=== PATIENT | female | born 1945 | race Caucasian/White ===

== ENCOUNTER 2017-04-22 19:25 | Inpatient (IN) | payer MEDICARE ==
[2017-04-22 19:50] LABS: Bilirubin Negative (Negative); Blood, Urine Negative (Negative); Glucose, Urine (Dipstick) Negative (Negative); Ketone, Urine Negative (Negative); Nitrite Negative (Negative); Protein, Urine (Dipstick) Negative (Neg-Trace)
[2017-04-22 19:53] LABS: Bacteria/HPF None Seen HPF (None Seen); Hyaline Casts/LPF 0-3 HYALINE CAST LPF (0-3 Hyaline); RBC/HPF 0-3 HPF (0-3)
[2017-04-22] MEDS ORDERED: Ondansetron HCl/PF 4 MG/2 ML Vial ONE (19:59)
[2017-04-22] MEDS ORDERED: Lidocaine Viscous Sol 2% 15 ml UD Cup ONE (19:59)
[2017-04-22] MEDS ORDERED: Mag-Al 1200 mg/1200 mg/30 ML UDCUP ONE (19:59)
[2017-04-22 20:03] LABS: #Eosinphils 0.2 thou/uL (0.0-0.7); #Lymphocytes 1.5 thou/uL (1.20-3.40); #Monocytes 0.6 thou/uL (0.11-0.59); #Neutrophils 5.8 thou/uL (1.40-6.50); %Basophils 0.1 % (0.0-1.0); %Eosinophils 2.4 % (0.0-10.0); %Lymphocytes 18.7 % (21.0-51.0); %Monocytes 7.3 % (0.0-10.0); Hematocrit 44.9 % (36.0-47.0); Mean Platelet Volume 6.7 fL (7.4-10.4); Red Blood Cell (RBC) Count 4.99 mill/uL (4.20-5.40); White Blood Cell (WBC) Count 8.1 thou/uL (4.8-10.8)
[2017-04-22 20:26] LABS: ALT (SGPT) 19 U/L (8-55); AST (SGOT) 18 U/L (5-34); Alkaline Phosphatase 93 U/L (40-150); Anion Gap 17 mmol/L (10-20); BUN (Urea Nitrogen) 18 mg/dL (9.8-20.1); Bilirubin, Total 0.7 mg/dL (0.2-1.2); Calc. Creatinine Clearance 0 mL/min (70-130); Calcium 9.9 mg/dL (7.8-10.44); Carbon Dioxide 22 mmol/L (23-31); Chloride 103 mmol/L (98-107); Estimated GFR-MDRD 60; Globulin 3.2 g/dL (2.4-3.5); Lipase 30 U/L (8-78)
[2017-04-22 20:29] LABS: Troponin I Less than 0.010 ng/mL (< 0.028)
--- NOTE | 2017-04-22 20:43 | RAD ---
AP VIEW CHEST 04/22/17 HISTORY: Vomiting. AP view chest is obtained on 04/22/17. Comparison study is not available. AP view chest demonstrates mild cardiomegaly. The lungs are well aerated. No evidence of active intra thoracic disease seen. No evidence of effusions, pneumonia, or pneumothorax seen. IMPRESSION: Mild cardiomegaly. POS: [facility]
[2017-04-22] MEDS ORDERED: Lorazepam 2 MG/ML VIAL ONE (22:31)
[2017-04-22] MEDS ORDERED: Aspirin 300 MG Suppository ONE (22:32)
[2017-04-22] MEDS ORDERED: Nitroglycerin 2% Ointment 1 INCH/1 GM Packet ONE (22:32)
[2017-04-22] MEDS ORDERED: Enoxaparin Sodium 80 MG/0.8 ML SYRINGE ONE (23:21)
[2017-04-22 23:55] LABS: Troponin I Less than 0.010 ng/mL (< 0.028)
[2017-04-23] MEDS ORDERED: Ondansetron HCl/PF 4 MG/2 ML Vial IVP PRN (00:36)
[2017-04-23] MEDS ORDERED: Nitroglycerin 0.4 MG TAB (25 Tab Bottle) SL PRN (00:36)
[2017-04-23] MEDS ORDERED: Ondansetron ODT 4 MG TAB SL PRN (00:36)
[2017-04-23] MEDS ORDERED: Morphine 4 MG/ML VIAL SLOW IVP PRN (00:36)
[2017-04-23] MEDS: Dextrose 5 % And 0.9 % NaCl 1,000 ML IV SCH ×2 (00:55→10:45)
[2017-04-23] MEDS ORDERED: Sodium Chloride 0.9% 1,000 ML IV SCH ×2 (01:00→11:00)
[2017-04-23 01:28] LABS: Troponin I Less than 0.010 ng/mL (< 0.028)
[2017-04-23 01:38] VITALS: BMI 25.4
--- NOTE | 2017-04-23 05:40 | HP-2 ---
CODE STATUS: FULL. PRIMARY CARE PHYSICIAN: Dr. Armand Lora ATTENDING: Dr. Bakari Kathleen RESIDENT: Madiha Brizuela D.O. HISTORIAN: Patient. CHIEF COMPLAINT: Abdominal pain, nausea and vomiting. HISTORY OF PRESENT ILLNESS: The patient is a 70-year-old female with past medical history of hyperte nsion, depression and anxiety who presented with reflux-like epigastric abdominal pain, onset 5 hours ago that started while she was cooking. The pain was also associated with what she describes as tro uble swallowing and nausea and vomiting. The patient denies prior exertional chest pain or decreasin g exercise tolerance. She denies shortness of breath at the time of this pain as well as diaphoresis or radiation of pain. The patient had a cath done 10 years ago that was negative, otherwise, has no prior CAD or cardiac workup. The patient reports a strong family history of hypertension and hernandez ry artery disease. In the ED an EKG was done which showed ST depression in anterior leads, 2 hours l ater EKG was repeated which showed worsening ST depression and new T-wave inversion in the anterior l darlyn. At the time of exam, the patient continues to report epigastric pain despite nitro paste. In the ER was given rectal aspirin, lorazepam 0.5 mg, and nitro paste. PAST MEDICAL HISTORY: 1. Hypertension. 2. Anxiety. 3. Depression. PAST SURGICAL HISTORY: 1. Hysterectomy. 2. Intestinal resection. 3. Left knee replacement. ALLERGIES: The patient reports possible allergy to MORPHINE stating that in the past she was told th at she had an allergic reaction, although she reports it was just a bad side effect causing itching. MEDICATIONS: 1. Metoprolol succinate 50 mg daily. 2. Bupropion 300 mg p.o. daily. 3. Lisinopril/HCTZ 20mg/12.5 mg once daily. 4. Atorvastatin 40 mg p.o. daily. 5. Amlodipine 10 mg p.o. daily. 6. Sertraline 25 mg p.o. daily. 7. Xanax 0.5 mg p.o. p.r.n. FAMILY HISTORY: Hypertension in both mother and father's side, brother who is 3 years younger has strickland d a CABG with severe coronary artery disease, dad of an [place]. SOCIAL HISTORY: Denies tobacco, alcohol, or drug use. REVIEW OF SYSTEMS: GENERAL: Patient denies fever. Reports decreased appetite. EYES: Denies vision changes or eye pain. ENT: Denies nasal congestion or rhinorrhea. RESPIRATORY: Denies cough, congestion or shortness of breath or exercise intolerance. CARDIOVASCULAR: Denies chest pain, palpitations or edema. GI: Reports nausea, vomiting, and abdominal pain. Denies diarrhea or constipation. GENITOURINARY: Denies dysuria. SKIN: Denies rashes. MUSCULOSKELETAL: Denies pain. NEURO: Denies syncope or seizure. PSYCHIATRIC: Reports anxiety. PHYSICAL EXAMINATION: VITAL SIGNS: Blood pressure 164/72, pulse 63, respiratory rate 16, T-max 97.8, pulse ox 96% on room air, current weight 67.13 kilograms. GENERAL: The patient is alert and oriented x4, appears anxious, well-developed, appropriately intera ctive. The patient asked to stop throughout the time to spit up foamy white saliva. EYES: PERRLA, EOMI. ENT: Oropharynx with erythema, but no masses or abnormal anatomy. NECK: Supple, without lymphadenopathy. CARDIOVASCULAR: Regular rate and rhythm. No murmurs or gallops. Radial pulses 2+. RESPIRATORY: Normal effort, no retractions. Clear to auscultation bilaterally. SKIN: Warm and dry. ABDOMEN: Soft, mild tenderness in the epigastric area. Bowel sounds positive in all 4 quadrants. N o masses or distention. No rebound tenderness, no guarding. EXTREMITIES: No edema. MUSCULOSKELETAL: Structure within normal limits. Tone within normal limits. NEUROLOGIC: No focal deficits. PSYCH: Appears anxious. LABORATORY DATA: CBC; white blood cell count 8.1, hemoglobin 15.0, hematocrit 44.9, platelets 244. Chemistries: Sodium 138, potassium 3.6, chloride 103, CO2 22, BUN 18, creatinine 0.92, glucose 93, G FR 60, calcium 9.9, total protein 8.0, albumin 4.8, AST 18, ALT 19, alkaline phosphatase 93, total bi lirubin 0.7. CK-MB 1.5. Troponin's less than 0.010, lipase 30. UA; specific gravity 1.017, blood negative, protein negative, leukocyte esterase small, nitrites nega tive, ketones negative, glucose negative, RBC 0-3, white blood cells 4-6, bacteria none, squamous 4-6 . EKG: ST depression in anterior leads with T-wave inversion and prolonged QTC at 483. Chest x-ray; mild cardiomegaly. ASSESSMENT AND PLAN: 1. Atypical chest pain secondary to unstable angina. The patient with acute onset epigastric pain t hat did not improve with typical medications, is not a typical presentation. The patient with ST dep ression on first EKG, worsened on second EKG 2 hours later. Troponin's negative, but there is concer n for ischemia with ST changes. She was given therapeutic Lovenox in the ED. We will trend the trop onins, repeat EKG with next troponin draw, and consult Cardiology in the morning. In regard to her p resentation of epigastric pain, physical exam is unimpressive for likelihood of stomach being the cau se or source of this pain, although it has not been ruled out. 2. Impaired swallowing. This is new onset, possibly related to the cause of epigastric pain. If ca rdiac workup is negative and the patient continues to have pain, we will consider barium swallow. 3. Hypertension, elevated now likely due to pain and stress, has decreased within the amount of time that I have interviewed the patient. We will give home medications and monitor. 4. Anxiety and depression. We will continue home medications. We will hold sertraline with the pro longed QTC. 5. Prolonged QTC. Monitor. Consider switching home sertraline to citalopram and avoid QT prolongin g agents. DISPOSITION AND LENGTH OF HOSPITAL STAY: 1-2 days. Symptomatic medications will be provided. History of physical exam as well as management was discussed with Dr. Kathleen.
[2017-04-23] MEDS: ALPRAZolam 0.5 MG TAB PO SCH ×2 (06:00→15:04)
[2017-04-23] MEDS ORDERED: Amlodipine 10 MG TAB PO SCH (09:00)
[2017-04-23] MEDS ORDERED: Lisinopril/Hydrochlorothiazide 20 mg/12.5 mg Tablet PO SCH (09:00)
[2017-04-23] MEDS ORDERED: Bupropion 150 MG XL TAB PO SCH (09:00)
[2017-04-23] MEDS ORDERED: Enoxaparin Sodium 100 MG/ML SYRINGE SC SCH (09:00)
[2017-04-23] MEDS ORDERED: Atorvastatin Calcium 40 MG TAB PO SCH (09:00)
[2017-04-23] MEDS ORDERED: Enoxaparin Sodium 80 MG/0.8 ML SYRINGE SC SCH (09:00)
[2017-04-23] MEDS ORDERED: Communication Order-Pharmacy FS SCH (11:00)
--- NOTE | 2017-04-23 11:17 | CON ---
DATE OF CONSULTATION: 04/23/2017 REASON FOR CONSULTATION: Abnormal EKG and chest pressure. HISTORY OF PRESENT ILLNESS: Ms. Red is a very pleasant 71-year-old woman with no previous cardiac history, who recently presented with chest tightness. She also had associated nausea and vomiting. No diaphoresis or other associated symptoms present. The pain lasted for several hours. The patien t did have dynamic EKG changes suggesting ischemia. She is currently pain free. She was given nitro glycerin with improvement in symptoms. PAST MEDICAL HISTORY: Hypertension, anxiety disorder and depression. PAST SURGICAL HISTORY: Hysterectomy and knee surgery. ALLERGIES: MORPHINE. MEDICATIONS: Metoprolol, lisinopril, bupropion, atorvastatin, amlodipine, sertraline and Xanax. SOCIAL HISTORY: No current tobacco or alcohol use. FAMILY HISTORY: Positive for hypertension. REVIEW OF SYSTEMS: Ten-point review of systems is as above, otherwise negative. PHYSICAL EXAMINATION: GENERAL: Patient is a pleasant female who is in no acute distress. The patient appears her stated a ge. VITAL SIGNS: Blood pressure 147/74, pulse 57 and temperature 97.6. NEUROLOGIC: The patient is alert and oriented x3 with no focal neurologic deficits. HEENT: Sclerae without icterus. Mouth has moist mucous membranes with normal pallor. NECK: No JVD. Carotid upstroke brisk. No bruits bilaterally. LUNGS: Clear to auscultation with unlabored respirations. BACK: No scoliosis or kyphosis. CARDIAC: Regular rate and rhythm with normal S1 and S2. No S3 or S4 noted. No significant rubs, mu rmurs, thrills, or gallops noted throughout the precordium. PMI is not displaced. There is no alexa ternal heave. ABDOMEN: Soft, nontender, nondistended. No peritoneal signs present. No hepatosplenomegaly. No ab normal striae. EXTREMITIES: 2+ femoral and 2+ dorsalis pedis pulses. No cyanosis, clubbing, or edema. SKIN: No gross abnormalities. IMAGING DATA: EKG; normal sinus rhythm with ST-T wave changes suggesting ischemia. PERTINENT LABS: Hemoglobin 15 and creatinine 0.92. IMPRESSION: Unstable angina. RECOMMENDATIONS: I discussed the options including medical therapy, stress test versus angiography. Given the EKG changes and symptoms, would recommend angiography. I discussed coronary angiography i n full detail. The risks include, but are not limited to the following: , stroke, [place], need for emergency surgery, loss of limb, bleeding, and infection, as well as a reaction to the dye causing k idney failure and needing long-term dialysis. I also discussed the risks of PCI to include all of th e above including coronary dissection and perforation in addition to acute stent thrombosis and reste nosis. All questions about the procedure were answered. Given the above, the patient agreed to proc eed with coronary angiography and possible PCI. I also discussed drug-coated versus nondrug coated s tent placement. There are no contraindications to proceed if needed. Further recommendations pendin g the above.
[2017-04-23] MEDS ORDERED: Heparin 1000 UNIT/NS 500ML(OR) 1,000 ML ONE (12:34)
[2017-04-23] MEDS ORDERED: Iopamidol 370 76% 100 ML VIAL ONE (13:03)
[2017-04-23] MEDS ORDERED: Fentanyl 100 MCG/2 ML VIAL ONE (13:04)
[2017-04-23] MEDS ORDERED: Midazolam HCl 2 mg/2 ml Vial ONE (13:04)
--- NOTE | 2017-04-23 13:38 | HP ---
I have read the history and physical of Dr. Madiha Brizuela and discussed the case with her. I agree wit h her assessment and plan. Briefly, Ms. Red is a pleasant 71-year-old white female who had some atypical chest pain prior to coming to the emergency room. She was standing in the kitchen cooking when she noticed some epigastr ic pain associated with dysphagia and nausea. She denies any previous history of exertional chest di scomfort or exercise intolerance. She was not short of breath or diaphoretic at the time of this dis comfort. She states she had a normal heart catheterization approximately 10 years ago. She came to the ER and was given aspirin and nitroglycerin. Her EKG already showed some possible ischemic change s and she was admitted for further evaluation. I examined her later in the morning. PHYSICAL EXAMINATION: VITAL SIGNS: Her blood pressure is currently 150/68, her pulse rate is 65 and regular, respirations 16 and not labored. She is afebrile. Her pulse ox on room air is 96%. GENERAL: Ms. Red is pleasant, alert, somewhat anxious, but in no distress. HEENT: Extraocular movements are normal. No icterus. Throat clear. NECK: Supple. CARDIAC: The PMI is in the fifth intercostal space, midclavicular line. No gallop or murmur noted. LUNGS: Clear, without rales, rhonchi, or wheezes. ABDOMEN: Flat and soft with mild epigastric tenderness. No rebound or rigidity. NEUROLOGIC: No focal deficits. LABORATORY DATA: CBC: White count is 8100, hemoglobin was 15, hematocrit 44.9. Sodium is 138, pota ssium 3.6, chloride 103, bicarbonate 22, BUN 18, creatinine 0.92, glucose 93. Her troponins are nega tive. Her EKG shows what appears to be significant ischemic changes in the precordial leads V2 and V 3. ASSESSMENT: Unstable angina. PLAN: Consult Cardiology as she will likely go for cardiac catheterization.
[2017-04-23 16:44] VITALS: BP 126/75; TEMP 99.6
--- NOTE | 2017-04-24 12:21 | DIS-2 ---
DATE OF DISCHARGE: 04/23/2017 RESIDENT: Dr. Angelo Belcher ADMITTING ATTENDING: Dr. Johnathan Henderson DISCHARGE ATTENDING: Dr. Bakari Kathleen CONSULTS: Cardiology with Dr. Hernandez. PROCEDURES: The patient did undergo a cardiac catheterization with Dr. Hernandez. Findings were mild CAD. She had 20% stenosis in her mid LAD. Dr. Hernandez has recommended medical management with follow up with her PCP and health aid going forward. PRIMARY DIAGNOSES: 1. Atypical chest pain secondary to unstable angina. 2. Impaired swallowing. 3. Hypertension. 4. Anxiety and depression. 5. Prolonged QTC. DISCHARGE MEDICATIONS: 1. Bupropion 300 mg. 2. Atorvastatin 40 mg. 3. Metoprolol succinate 50 mg. 4. Lisinopril/hydrochlorothiazide 20/12.5 mg. 5. Amlodipine 10 mg. 6. Alprazolam 0.5 mg. DISCONTINUED MEDICATIONS: Sertraline 25 mg. HISTORY OF PRESENT ILLNESS AND HOSPITAL COURSE: This is a 70-year-old female with past medical history of hypertension, depression, anxiety who presents with reflux-like epigastric abdominal pain, onset 5 hours ago that started while she was cooking. The pain was also associated with what was described as trouble swallowing and nausea and vomiting. The patient denies prior exertional chest pain or decreasing exercise tolerance. She denies shortness of breath at the time of this pain as well as diaphoresis or radiation of pain. The patient had a catheterization done 10 years ago that was negative. Otherwise, has had no prior CAD or cardiac workup. The patient reports a strong family history of hypertension and coronary artery disease. In the ED, an EKG was done which showed ST depression in anterior leads, 2 hours later the EKG was repeated which showed worsening ST depression and new T-wave inversion in the anterior leads. At the same time of the exam, the patient continues to report epigastric pain despite nitro paste. In the ER, she was given a rectal aspirin, lorazepam and nitro paste. During this hospitalization, the chest pain resolved with the nitro paste and the patient no longer had any of the dysphagia-like symptoms. The patient believes that the dysphagia-like symptoms and the chest pain resolved around the same time after the application of the nitro paste. Because of the EKG findings and changes, Dr. Hernandez with Cardiology was consulted and we appreciate his recommendations. Dr. Hernandez saw and evaluated the patient and he recommended to proceed with a cardiac catheterization at that time. The patient went back for the cardiac catheterization and was found to have a 20% stenosis of the left anterior descending artery of the myocardium. The patient had no complications from this procedure and was pain free during this entire time. The patient then was taken back up to the room to be observed to make sure no other complications would come from this procedure. She was also placed on tele monitoring and had no further events from a cardiac standpoint. The patient had some notable lab values of troponins less than 0.01 x3. A cholesterol level of 145 and a prolonged QT interval found on EKG. It was at that time that we decided to hold her sertraline medication until she was able to follow up with her primary care physician, Dr. Lora. The patient otherwise had no complications during this hospitalization and was discharged in an appropriate condition. DISPOSITION: Stable. DISCHARGE INSTRUCTIONS: 1. She will be discharged home into her own care. 2. Diet will be a heart healthy diet. 3. Activity: Activity will be as tolerated without any restrictions. 4. Followup: Follow up will be with her primary care physician, Dr. Lora in 3 days to discuss the prolonged QT interval as well as the sertraline medications. She is already also on optimal medical therapy for CAD and so she will just need to continue that under Dr. Lora's supervision. Otherwise, a very sweet lady and we wish her the best of luck and hope she has no further complications from this condition. RANJANA
== END 2017-04-23 18:21 | disposition home or self-care (01) | DRG 287 ==
LOC: ERS 19:25 → 2SE 22:30 → OBSVTOIN 22:30
PROVIDERS: ADMIT Family Medicine; ATTEND Family Medicine
PROC: 4A023N7 Measurement of Cardiac Sampling and Pressure, Left Heart, Percutaneous Approach (ICD-10-PCS; principal; 2017-04-23)
PROC: B2111ZZ Fluoroscopy of Multiple Coronary Arteries using Low Osmolar Contrast (ICD-10-PCS; 2017-04-23)
PROC: B2151ZZ Fluoroscopy of Left Heart using Low Osmolar Contrast (ICD-10-PCS; 2017-04-23)
DX: I25.110 Atherosclerotic heart disease of native coronary artery with unstable angina pectoris (principal); R13.10 Dysphagia, unspecified; I10 Essential (primary) hypertension; F32.9 Major depressive disorder, single episode, unspecified; F41.9 Anxiety disorder, unspecified; Z96.652 Presence of left artificial knee joint; Z82.49 Family history of ischemic heart disease and other diseases of the circulatory system
CPT/HCPCS: 36415; 71010; 80053; 80061; 81003; 81015; 82553; 83690; 84484; 85025; 93005; 93010; 93454; 96372; 96374; 96375; 99152; A4216; C1760; C1769; J1644; J1650; J2060; J2250; J2405; J3010

== ENCOUNTER 2020-04-26 16:48 | Inpatient (IN) | payer MEDICARE ==
--- NOTE | 2020-04-26 17:32 | RAD ---
Right knee 4 views: 04/26/2020 COMPARISON: None HISTORY: Injury, trauma, pain, swelling FINDINGS: Moderate medial and mild lateral compartment narrowing. Osteophyte formation noted involvin g the medial and lateral femoral condyles as well as the medial and lateral tibial plateaus. There is a prominent knee joint effusion. There is an acute horizontal fracture through the midportio n of the patella with slight distraction. IMPRESSION: Acute patellar fracture with associated knee joint effusion.
[2020-04-26 18:20] LABS: #Eosinphils 0.1 thou/uL (0.0-0.7); #Lymphocytes 1.2 thou/uL (1.20-3.40); #Monocytes 0.4 thou/uL (0.11-0.59); #Neutrophils 4.5 thou/uL (1.40-6.50); %Basophils 0.1 % (0.0-1.0); %Eosinophils 2.4 % (0.0-10.0); %Lymphocytes 18.6 % (21.0-51.0); %Monocytes 6.8 % (0.0-10.0); %Neutrophils 72.1 % (42.0-75.0); Hemoglobin 14.3 g/dL (12.0-16.0); Mean Corpuscular HGB CONC 34.3 g/dL (32.0-36.0); Mean Corpuscular Hemoglobin 29.3 pg (27.0-31.0); Mean Corpuscular Volume 85.6 fL (78.0-98.0); Mean Platelet Volume 6.8 fL (7.4-10.4); Platelet Count 201 thou/uL (130-400); RBC Distribution Width 12.1 % (11.5-14.5); Red Blood Cell (RBC) Count 4.87 mill/uL (4.20-5.40); White Blood Cell (WBC) Count 6.2 thou/uL (4.8-10.8)
--- NOTE | 2020-04-26 18:32 | RAD ---
Portable frontal chest radiograph: 04/26/2020 COMPARISON: 04/22/2017 HISTORY: Preoperative patient FINDINGS: Stable mild increased linear interstitial density with pulmonary hyperinflation. Stable vas cular calcification of the aortic arch. No pneumothorax, pleural fluid, focal consolidation, or alveolar edema. IMPRESSION: Stable chest radiograph
[2020-04-26 18:40] LABS: ALT (SGPT) 16 U/L (8-55); AST (SGOT) 16 U/L (5-34); Albumin 4.8 g/dL (3.4-4.8); Alkaline Phosphatase 98 U/L (40-110); Anion Gap 15 mmol/L (10-20); BUN (Urea Nitrogen) 18 mg/dL (9.8-20.1); Bilirubin, Total 0.6 mg/dL (0.2-1.2); Calc. Creatinine Clearance 0 mL/min (70-130); Calcium 9.2 mg/dL (7.8-10.44); Carbon Dioxide 26 mmol/L (23-31); Chloride 105 mmol/L (98-107); Globulin 2.6 g/dL (2.4-3.5); Glucose 97 mg/dL (83-110); Potassium 3.9 mmol/L (3.5-5.1); Protein, Total 7.4 g/dL (6.0-8.3); Sodium 142 mmol/L (136-145)
[2020-04-26] MEDS ORDERED: Ibuprofen 200 MG TAB ONE ×2 (19:26→19:31)
[2020-04-26] MEDS ORDERED: HYDROcodone/Acetaminophen 10/325 mg Tablet ONE (19:31)
[2020-04-26] MEDS ORDERED: Morphine 2 MG/ML VIAL SLOW IVP PRN (19:39)
[2020-04-26] MEDS ORDERED: Ondansetron PF 4 MG/2 ML Vial IVP PRN (19:39)
[2020-04-26] MEDS ORDERED: Dextrose 5% in Water 1,000 ML IV PRN (19:39)
[2020-04-26] MEDS ORDERED: Dextrose 50% Abboject 50 ML SYRINGE SLOW IVP PRN (19:39)
[2020-04-26] MEDS ORDERED: hydrALAZINE 20 MG/ML VIAL SLOW IVP PRN (19:39)
[2020-04-26] MEDS ORDERED: Ibuprofen 200 MG TAB PO PRN (19:59)
[2020-04-26] MEDS ORDERED: Cyclobenzaprine 10 MG TAB PO PRN (19:59)
[2020-04-26] MEDS ORDERED: Sodium Chloride 0.9% 1,000 ML IV SCH (20:00)
[2020-04-26 21:12] LABS: Magnesium 2.3 mg/dL (1.6-2.6); Phosphorus 3.9 mg/dL (2.3-4.7)
[2020-04-26] MEDS ORDERED: Famotidine 20 MG TAB ONE (22:16)
[2020-04-26] MEDS ORDERED: traMADol HCl 50 MG TAB ONE (22:25)
[2020-04-26] MEDS: Famotidine 20 MG TAB PO SCH (22:31)
[2020-04-26] MEDS: traMADol HCl 50 MG TAB PO SCH (22:32)
[2020-04-26] MEDS: Senokot S 8.6-50 MG TAB PO SCH (23:09)
[2020-04-27] MEDS: Acetaminophen 500 MG TAB PO SCH ×5 (00:45→23:33)
[2020-04-27] MEDS ORDERED: tiZANidine HCl 4 MG TAB PO SCH (00:45)
[2020-04-27] MEDS ORDERED: ALPRAZolam 0.5 MG TAB PO SCH (00:45)
--- NOTE | 2020-04-27 00:51 | HP ---
REQUESTING PHYSICIAN: Dr. Sylvester. PRIMARY CARE PHYSICIAN: Dr. Lora. CONSULTS: Orthopedic Surgery, Dr. Navarrete. CHIEF COMPLAINT: Mechanical fall, right knee pain. HISTORY OF PRESENT ILLNESS: This is a 74-year-old female who presented to the emergency room after she had a mechanical fall. The patient states that she was ambulating when her right knee gave out causing her to fall forward onto her knees. The patient had immediate right knee pain. The patient did not hit her head or lose consciousness. The patient reports having past knee trouble for the last 3 to 4 years, needing a knee replacement. The patient denied any chest pain, shortness of breath, or dizziness prior to falling. The patient denies any recent cough, cold, fever, chills, or congestion. The patient also reports an abrasion to her left knee, but no pain or deformity. The patient was evaluated in the emergency room and found to have a left patellar fracture with an effusion. Orthopedic Surgery was consulted and Trauma Services was asked to admit the patient. REVIEW OF SYSTEMS: A 10-point review of systems is negative unless otherwise indicated in the above HPI. ALLERGIES: MORPHINE CAUSES ITCHING. PAST MEDICAL HISTORY: Hypertension, hyperlipidemia, and chronic back pain. PAST SURGICAL HISTORY: Hysterectomy, left knee replacement, bowel resection due to diverticulosis. MEDICATIONS: 1. Toprol-XL 50 mg p.o. daily. 2. Tizanidine hydrochloride 4 mg p.o. at bedtime. 3. Lisinopril/hydrochlorothiazide 20/12.5 mg one tablet p.o. daily. 4. Bupropion HCL extended release 300 mg p.o. daily. 5. Atorvastatin 40 mg p.o. daily. 6. Norvasc 10 mg p.o. daily. 7. Alprazolam 0.5 mg p.o. q.8 hours p.r.n. SOCIAL HISTORY: The patient lives at home with her spouse. Denies alcohol use. Denies history of smoking. Denies drug use. OBJECTIVE: VITAL SIGNS: Blood pressure 139/71, pulse 78, respirations 17, temperature 100.2, and SpO2 of 97% on room air. GENERAL: Well-appearing elderly female, awake, alert, in no distress. HEENT: Head is atraumatic and normocephalic. Pupils equal bilateral. NECK: No cervical spine tenderness. Normal range of motion. Trachea midline. RESPIRATORY: Good inspiratory and expiratory effort. No wheezing, rales, or rhonchi. Bilateral breath sounds clear. CARDIAC: Regular rate and regular rhythm. No murmurs. ABDOMEN: Soft, nontender, and nondistended. PELVIS: Stable. EXTREMITIES: Moves all extremities. Distal pulses 2+ in all extremities. No pedal edema. Right lower extremity in a knee immobilizer. Superficial abrasion to the left knee. NEUROLOGIC: No focal deficits. GCS 15. LABORATORY DATA: WBC 6.2, RBC 4.87, hemoglobin 14.3, hematocrit 41.7, platelets 201. Sodium 142, potassium 3.9, chloride 105, BUN 18, creatinine 0.94, estimated GFR 58, glucose 97, phosphorus 3.9, magnesium 2.3. AST 16, ALT 16. Troponin I less than 0.010. DIAGNOSTIC DATA: Knee x-ray, impression, right patellar fracture with associated knee joint effusion. Chest x-ray, impression, stable chest x-ray, no pneumothorax, no acute cardiothoracic abnormalities. ASSESSMENT: 1. Status post mechanical fall. 2. Right patellar fracture with knee joint effusion. 3. History of hypertension and insomnia. PLAN: Admit the patient to the surgical floor. N.p.o. after midnight with maintenance IV fluids, normal saline at 100 mL an hour x1 bag. The patient may have a regular diet tonight. Pain control. Supportive care. We will place a rehab screen in case the patient needs additional rehab, but most likely the patient will be discharged home postop as she will be able to bear weight according to Orthopedic Surgery. The patient is planned to go to the OR for repair with Dr. Navarrete around 1230 hours tomorrow. We will have PT/OT work with the patient postop. The plan was discussed with the patient and family who agree. The plan will be discussed with the attending after this dictation. Job ID: [id number]
[2020-04-27] MEDS ORDERED: ALPRAZolam 0.25 MG TAB ONE (01:08)
[2020-04-27] MEDS ORDERED: traMADol HCl 50 MG TAB ONE (03:05)
[2020-04-27] MEDS ORDERED: Acetaminophen 500 MG TAB ONE (03:05)
[2020-04-27] MEDS: traMADol HCl 50 MG TAB PO PRN (03:10)
[2020-04-27 03:51] VITALS: BMI 24.9
[2020-04-27] MEDS: traMADol HCl 50 MG TAB PO SCH ×4 (05:18→23:33)
[2020-04-27 05:22] LABS: #Eosinphils 0.1 thou/uL (0.0-0.7); #Lymphocytes 1.5 thou/uL (1.20-3.40); #Monocytes 0.5 thou/uL (0.11-0.59); #Neutrophils 2.8 thou/uL (1.40-6.50); %Basophils 0.5 % (0.0-1.0); %Eosinophils 2.7 % (0.0-10.0); %Lymphocytes 30.8 % (21.0-51.0); %Monocytes 10.1 % (0.0-10.0); %Neutrophils 55.8 % (42.0-75.0); Hemoglobin 11.6 g/dL (12.0-16.0); Mean Corpuscular HGB CONC 32.3 g/dL (32.0-36.0); Mean Corpuscular Hemoglobin 28.1 pg (27.0-31.0); Mean Corpuscular Volume 86.9 fL (78.0-98.0); Platelet Count 170 thou/uL (130-400); RBC Distribution Width 12.1 % (11.5-14.5); Red Blood Cell (RBC) Count 4.15 mill/uL (4.20-5.40); White Blood Cell (WBC) Count 4.9 thou/uL (4.8-10.8)
[2020-04-27 05:43] LABS: Anion Gap 12 mmol/L (10-20); BUN (Urea Nitrogen) 15 mg/dL (9.8-20.1); Calc. Creatinine Clearance 65 mL/min (70-130); Carbon Dioxide 25 mmol/L (23-31); Chloride 107 mmol/L (98-107); Potassium 3.3 mmol/L (3.5-5.1); Sodium 141 mmol/L (136-145)
[2020-04-27 05:44] LABS: Calcium 8.3 mg/dL (7.8-10.44); Glucose 79 mg/dL (83-110); Magnesium 2.3 mg/dL (1.6-2.6); Phosphorus 3.8 mg/dL (2.3-4.7)
[2020-04-27 05:58] LABS: SARS-CoV-2 MS2 Positive; SARS-CoV-2 N Gene Negative; SARS-CoV-2 S Gene Negative; SARS-CoV-2 by NAA Not Detected (NotDetected); SARS-CoV-2 orf1ab Negative
[2020-04-27] MEDS: Senokot S 8.6-50 MG TAB PO SCH ×2 (08:20→21:16)
[2020-04-27] MEDS: Polyethylene Glycol 3350 17 GM Packet PO SCH (08:20)
[2020-04-27] MEDS: Famotidine 20 MG TAB PO SCH ×2 (08:42→21:16)
--- NOTE | 2020-04-27 08:45 | CON ---
DATE OF CONSULTATION: 04/26/2020 REQUESTING PHYSICIAN: Mark Andrews DO CONSULTING PHYSICIAN: Henry Navarrete MD REASON FOR CONSULTATION: Right transverse patellar fracture. BRIEF CLINICAL HISTORY: Hanna is a 74-year-old female admitted by the Trauma Service for mechanical fall with resulting right knee pain secondary to a transverse patellar fracture. She describes the knee as "giving out" and she has been advised by Dr. Llanes in the past that she would ultimately require a total knee arthroplasty for her osteoarthritis. This has been an ongoing problem. She denies any loss of consciousness. She denies any fever, chills, nausea, vomiting, or any other constitutional symptoms. She remembers the events before, during, and after the episode. Plain radiographs obtained in the emergency room demonstrates transverse mid pole patellar fracture on the right knee. Also, large hematoma is noted in the suprapatellar pouch. PAST MEDICAL HISTORY: Hypertension, hyperlipidemia, chronic low back pain for which she receives rhizotomy on a regular basis by Dr. Orlando, who follows her from a pain standpoint. MEDICATIONS: 1. Toprol. 2. Tizanidine. 3. Lisinopril. 4. Bupropion. 5. Atorvastatin. 6. Norvasc. 7. Alprazolam. ALLERGIES: NO KNOWN DRUG ALLERGIES. DENIES ANY CONTACT ALLERGIES. SOCIAL HISTORY: She and her spouse live at home. She denies any ethanol, tobacco, or illicit drug abuse. PHYSICAL EXAMINATION: GENERAL: This is a well-nourished, well-developed female, appearing her stated age, no apparent distress, discomfort. She is polite, pleasant and conversive. HEENT: Pupils equally round and reactive to light. Oropharynx benign. CHEST: Clear to auscultation. HEART: Regular rhythm. ABDOMEN: Soft, benign. EXTREMITIES: No clubbing, cyanosis, or edema. She does have a long-leg immobilizer in place on the right knee. +1 to 2 effusion is noted over the right knee. Tenderness elicits with palpation at the patella. Range of motion is not assessed due to known underlying fracture. She is neurovascularly intact without any malrotation or shortening of the right lower extremity. No active bleeding or open fracture identified. IMPRESSION: 1. Right knee transverse patellar fracture, closed secondary to mechanical fall. 2. Hypertension. 3. Hyperlipidemia. PLAN: 1. The risks, benefits, options, alternatives, and rationale for proceeding with open reduction and internal fixation of the right patella has been explained in great detail to the patient, she is ready to proceed. All questions were answered. No guarantee of outcome has been stated or implied. 2. N.p.o. after midnight. 3. Please see orders. Job ID: [id number]
[2020-04-27] MEDS ORDERED: Potassium Chloride 40 MEQ in Sodium Chloride 0.9% 250 ML 250 ML IVPB SCH (09:00)
[2020-04-27] MEDS ORDERED: Ondansetron PF 4 MG/2 ML Vial ONE (11:11)
[2020-04-27] MEDS ORDERED: Ketorolac Tromethamine 30 MG/ML VIAL ONE (11:11)
[2020-04-27] MEDS ORDERED: Lidocaine 1% PF 5 ML VIAL ONE (11:11)
[2020-04-27] MEDS ORDERED: Dexamethasone 20 MG/5 ML VIAL ONE (11:11)
[2020-04-27] MEDS ORDERED: Glycopyrrolate 0.2 MG/ML 5 ML SYRINGE ONE (11:11)
[2020-04-27] MEDS ORDERED: Metoclopramide HCl 10 MG/2 ML VIAL ONE (11:11)
[2020-04-27] MEDS ORDERED: PROPOFOL 200 MG/20 ML VIAL ONE (11:11)
[2020-04-27] MEDS ORDERED: Bupivacaine HCl 0.5%/Epinephrine 1:200,000/PF 30 ml Vial ONE (11:11)
[2020-04-27 11:28] LABS: Bacteria/HPF None Seen HPF (None Seen); Bilirubin Negative (Negative); Blood, Urine Negative (Negative); Clarity Clear (Clear); Glucose, Urine (Dipstick) Normal (Negative); Ketone, Urine Negative (Negative); Leukocyte Negative Leu/uL (Negative); Nitrite Negative (Negative); Protein, Urine (Dipstick) Negative (Neg-Trace); RBC/HPF 0-3 HPF (0-3); Specific Gravity, Urine 1.009 (1.002-1.036); Squamous Epithelial None Seen HPF (0-3); Urobilinogen Normal mg/dL (Less than 2); WBC/HPF 0-3 HPF (0-3)
[2020-04-27] MEDS ORDERED: Fentanyl 100 MCG/2 ML VIAL ONE ×2 (12:56→13:08)
[2020-04-27] MEDS ORDERED: Phenylephrine 10 MG/ML VIAL ONE (12:56)
[2020-04-27] MEDS ORDERED: Midazolam HCl 2 mg/2 ml Vial ONE (13:08)
[2020-04-27] MEDS ORDERED: Ondansetron HCl/PF 4 MG/2 ML Vial IVP PRN (14:55)
[2020-04-27] MEDS ORDERED: Promethazine HCl 25 MG/ML VIAL SLOW IVP PRN (14:55)
[2020-04-27] MEDS ORDERED: Promethazine HCl 25 MG/ML VIAL IM PRN (14:55)
[2020-04-27] MEDS ORDERED: Chloraseptic Spray 180 ml Bottle PO PRN (18:46)
[2020-04-27] MEDS ORDERED: Cepastat Lozenges 1 LOZ PO PRN (18:46)
--- NOTE | 2020-04-27 19:00 | RAD ---
2 intraoperative images of the right knee: 04/27/2020 COMPARISON: 04/26/2020 HISTORY: Patellar fracture status post ORIF FINDINGS: The previously noted patellar fracture has been treated with 2 vertically oriented screws w ith associated cerclage wire. There is anatomic alignment at the fracture site. IMPRESSION: ORIF right patella.
--- NOTE | 2020-04-27 19:46 | OP ---
DATE OF PROCEDURE: 04/27/2020 PREOPERATIVE DIAGNOSIS: Transverse patella fracture, right. POSTOPERATIVE DIAGNOSIS: Transverse patella fracture, right. SURGICAL PROCEDURE: Open reduction and internal fixation of right patella. ANESTHESIA: General and block. ARC AIR OPERATOR: Jason. TOURNIQUET TIME: Approximately 45 minutes at 300 mmHg. IMPLANTS: Synthes 4.0 mm cannulated screws x2. COMPLICATIONS: None. DRAINS: None. SPECIMEN: None. OUTCOME: Satisfactory. INDICATIONS: The patient is a pleasant 74-year-old lady, status post fall sustaining a transverse fracture of the right patella with diastasis. After discussion with the patient including risks and benefits, we decided to proceed with open reduction and internal fixation. Informed consent has been obtained, I believe all questions have been answered. DESCRIPTION OF PROCEDURE: The patient was brought to the operating room and a time-out performed followed by induction of general anesthesia. Next, a sterile prep and drape were performed of the right lower extremity. Next, the limb was exsanguinated with Esmarch bandage, tourniquet inflated to 300 mmHg. Next, a midline anterior knee incision was made after skin was sharply incised. Dissection was carried down bluntly to the underlying quadriceps mechanism. The peritenon overlying the patellar tendon and patella was incised in line with skin incision and reflected medially and laterally by my drug safety assistant. Next, the fracture was reduced and held in place with a bone tenaculum with reduction checked under AP and lateral C-arm imaging. While my drug safety assistant continued to hold the fracture reduced, I passed two threaded guidewires from superior pole to the inferior pole of the patella under C-arm guidance. Once appropriately positioned, measurement was taken off these pins and then drilling was performed of the superior pole. Next, partially threaded 4.0 mm cancellous screws were passed over each guidewire, respectively, getting good compression across the fracture line. This was then followed by passage of an 18-gauge wire down the shaft of one of the screws exiting inferiorly. This was then brought back up superiorly and passed down the 2nd screw to achieve a [id number] type configuration. Next, dual twisting was performed to get excellent compression and a tension band construct of the patella. Final AP and lateral C-arm images were then obtained that showed anatomic alignment of the patella and appropriate positioning of the hardware. The tension band wire was then bent firmly against the patella to try and avoid any prominence and then the wound thoroughly irrigated. There was found to be no significant tearing of the retinaculum. The peritenon was reapproximated with 0 Vicryl followed by 2-0 Vicryl subcutaneously and lili for the skin. Xeroform gauze and Rajendra wrap dressing were applied to the knee and the knee was placed in the knee immobilizer and then tourniquet was let down and the patient transferred to recovery room in stable condition. There were no complications. The patient tolerated the procedure well. Job ID: [id number] MTDD
--- NOTE | 2020-04-27 20:18 | PRG ---
DATE OF SERVICE: 04/27/2020 SUBJECTIVE: The patient was seen this morning during rounds. She was sitting up in bed, was getting ready to go to the OR. She has been n.p.o. The pain is controlled. Earlier today, she was not able to void and so a Jean-Baptiste catheter was placed. OBJECTIVE: VITAL SIGNS: Temperature 98.0, pulse 52, respirations 20, oxygen saturation 97% on room air, blood pressure 151/71. GENERAL: Well-appearing elderly female, sitting up in bed with no signs of acute distress. PULMONARY: Equal chest rise and fall. Clear breath sounds bilaterally. No signs of acute respiratory distress. CARDIAC: Regular rate and rhythm. GASTROINTESTINAL: Abdomen is soft, nontender, nondistended. EXTREMITIES: 2+ pulses all extremities. Gross motor and sensation intact. No significant swelling noted. NEUROLOGIC: GCS is 15. LABORATORY FINDINGS: White count 4.9, hemoglobin 11.6, hematocrit 36.0, platelets 170. Sodium 141, potassium 3.3, chloride 107, bicarb 25, BUN 15, creatinine 0.74, glucose 79, phosphorus 3.8, magnesium 2.3. UA is negative. DIAGNOSTIC FINDINGS: There are no new diagnostic findings to report. ASSESSMENT: 1. Status post mechanical fall from standing. 2. Right patellar fracture with joint effusion. 3. History of hypertension. 4. Acute hypokalemia. 5. Urinary retention. PLAN: The patient is to go to the OR today. Continue Jean-Baptiste until postop. Replace potassium via IV this morning. The patient is to work with Physical Therapy postoperatively. Case Management is going to start on placement with a half-way facility. This patient was discussed with Dr. Andrews before this dictation. Job ID: [id number]
[2020-04-27] MEDS: CEFAZOLIN 2 GM in Premix Bag 1 BAG IVPB SCH (21:15)
[2020-04-27] MEDS: Cyclobenzaprine 10 MG TAB PO PRN (21:37)
[2020-04-28] MEDS: traMADol HCl 50 MG TAB PO PRN ×2 (03:40→16:17)
[2020-04-28] MEDS: traMADol HCl 50 MG TAB PO SCH ×4 (05:12→23:54)
[2020-04-28] MEDS: Acetaminophen 500 MG TAB PO SCH ×4 (05:12→23:54)
[2020-04-28] MEDS: CEFAZOLIN 2 GM in Premix Bag 1 BAG IVPB SCH ×2 (05:13→14:35)
[2020-04-28 05:45] LABS: #Monocytes 0.8 thou/uL (0.11-0.59); #Neutrophils 6.1 thou/uL (1.40-6.50); %Basophils 0.2 % (0.0-1.0); %Eosinophils 0.2 % (0.0-10.0); %Lymphocytes 13.2 % (21.0-51.0); %Monocytes 9.6 % (0.0-10.0); %Neutrophils 76.9 % (42.0-75.0); Hemoglobin 12.6 g/dL (12.0-16.0); Mean Corpuscular HGB CONC 33.6 g/dL (32.0-36.0); Mean Corpuscular Volume 86.2 fL (78.0-98.0); Mean Platelet Volume 6.8 fL (7.4-10.4); Platelet Count 187 thou/uL (130-400); Red Blood Cell (RBC) Count 4.36 mill/uL (4.20-5.40); White Blood Cell (WBC) Count 7.9 thou/uL (4.8-10.8)
[2020-04-28 06:10] LABS: Anion Gap 16 mmol/L (10-20); BUN (Urea Nitrogen) 9 mg/dL (9.8-20.1); Calc. Creatinine Clearance 63 mL/min (70-130); Carbon Dioxide 23 mmol/L (23-31); Chloride 104 mmol/L (98-107); Glucose 91 mg/dL (83-110); Phosphorus 3.4 mg/dL (2.3-4.7); Potassium 3.5 mmol/L (3.5-5.1); Sodium 139 mmol/L (136-145)
[2020-04-28] MEDS ORDERED: PHOS-NAK 1 PKT PACK PO SCH (08:00)
[2020-04-28] MEDS ORDERED: Potassium Chloride 20 MEQ TAB PO SCH (08:00)
[2020-04-28] MEDS ORDERED: BUPROPION HCL 300 MG PO SCH (09:00)
[2020-04-28] MEDS: Amlodipine 10 MG TAB PO SCH (09:15)
[2020-04-28] MEDS: Bupropion 150 MG XL TAB PO SCH (09:15)
[2020-04-28] MEDS: Aspirin 81 mg Enteric Coated Tablet PO SCH ×2 (09:15→20:00)
[2020-04-28] MEDS: Lisinopril/Hydrochlorothiazide 20 mg/12.5 mg Tablet PO SCH (09:15)
[2020-04-28] MEDS: Polyethylene Glycol 3350 17 GM Packet PO SCH (09:15)
[2020-04-28] MEDS: Atorvastatin Calcium 40 MG TAB PO SCH (09:18)
[2020-04-28] MEDS: Senokot S 8.6-50 MG TAB PO SCH ×2 (09:20→20:01)
--- NOTE | 2020-04-28 12:41 | PRG ---
DATE OF SERVICE: 04/28/2020 SUBJECTIVE: The patient was seen this morning during rounds. She was sitting up in bed with no signs of acute distress. She reported her pain is well controlled. Earlier in the morning, she was feeling anxious and received her home Xanax dose. She reports feeling better now. She has worked with physical therapy. She is not particularly interested in going to a rehab or skilled facility and will refer to go home with physical therapy. OBJECTIVE: VITAL SIGNS: Temperature 98.5, pulse 58, respirations 18, oxygen saturation 93% on room air, blood pressure 168/80. GENERAL: Well-appearing elderly female, sitting up in bed with no signs of acute distress. PULMONARY: Equal chest rise and fall. Clear breath sounds bilaterally. No signs of acute respiratory distress. CARDIAC: Regular rate and rhythm. GI: Abdomen is soft, nontender, nondistended. EXTREMITIES: 2+ pulses all extremities. Gross motor and sensation are intact. Knee immobilizer to right lower extremity. Postop dressing is clean, dry, and intact. NEUROLOGIC: GCS is 15. LABORATORY FINDINGS: White count 7.4, hemoglobin 12.6, hematocrit 37.6, platelets 187. Sodium 139, potassium 3.5, chloride 105, bicarb 23, BUN 9, creatinine 0.77, phosphorus 3.4, magnesium 2.0. DIAGNOSTIC FINDINGS: There are no new diagnostic findings to discuss. ASSESSMENT: 1. Status post mechanical fall from standing. 2. Right patellar fracture with joint effusion. 3. History of hypertension and anxiety. PLAN: Continue current diet and pain regimen. Continue physical and occupational therapy. Restart patient's home medications. Replace potassium and phosphorus today. Physical Therapy has recommended rehab for the patient. She is pretty adamant about going home with physical therapy. Trauma team to discuss with her our concerns about going home and possibly falling and injuring herself again. If she again is adamant about going home, we will arrange home physical therapy for her and likely discharge her tomorrow. This patient was seen and evaluated by myself and Dr. Andrews this morning during rounds. Job ID: [id number]
[2020-04-28] MEDS: Cyclobenzaprine 10 MG TAB PO PRN (12:50)
[2020-04-28] MEDS: ALPRAZolam 0.5 MG TAB PO PRN ×2 (12:50→21:47)
[2020-04-28] MEDS ORDERED: tiZANidine HCl 4 MG TAB PO SCH (21:00)
[2020-04-29] MEDS: traMADol HCl 50 MG TAB PO PRN ×2 (01:17→10:04)
[2020-04-29 05:32] LABS: #Eosinphils 0.2 thou/uL (0.0-0.7); #Lymphocytes 1.6 thou/uL (1.20-3.40); #Monocytes 0.7 thou/uL (0.11-0.59); #Neutrophils 4.9 thou/uL (1.40-6.50); %Basophils 0.4 % (0.0-1.0); %Eosinophils 2.2 % (0.0-10.0); %Lymphocytes 21.1 % (21.0-51.0); %Monocytes 10.1 % (0.0-10.0); %Neutrophils 66.3 % (42.0-75.0); Hemoglobin 12.9 g/dL (12.0-16.0); Mean Corpuscular HGB CONC 34.3 g/dL (32.0-36.0); Mean Corpuscular Hemoglobin 30.3 pg (27.0-31.0); Mean Corpuscular Volume 88.2 fL (78.0-98.0); Mean Platelet Volume 6.9 fL (7.4-10.4); Platelet Count 171 thou/uL (130-400); RBC Distribution Width 12.2 % (11.5-14.5); Red Blood Cell (RBC) Count 4.27 mill/uL (4.20-5.40); White Blood Cell (WBC) Count 7.4 thou/uL (4.8-10.8)
[2020-04-29 05:47] LABS: Anion Gap 15 mmol/L (10-20); BUN (Urea Nitrogen) 10 mg/dL (9.8-20.1); Calc. Creatinine Clearance 61 mL/min (70-130); Calcium 8.9 mg/dL (7.8-10.44); Carbon Dioxide 25 mmol/L (23-31); Chloride 102 mmol/L (98-107); Glucose 77 mg/dL (83-110); Phosphorus 3.7 mg/dL (2.3-4.7); Potassium 3.6 mmol/L (3.5-5.1); Sodium 138 mmol/L (136-145)
[2020-04-29] MEDS: Acetaminophen 500 MG TAB PO SCH ×3 (05:56→13:10)
[2020-04-29] MEDS: traMADol HCl 50 MG TAB PO SCH ×2 (05:56→13:09)
[2020-04-29] MEDS: Atorvastatin Calcium 40 MG TAB PO SCH (08:27)
[2020-04-29] MEDS: Amlodipine 10 MG TAB PO SCH (08:28)
[2020-04-29] MEDS: Bupropion 150 MG XL TAB PO SCH (08:28)
[2020-04-29] MEDS: Aspirin 81 mg Enteric Coated Tablet PO SCH (08:28)
[2020-04-29] MEDS: Lisinopril/Hydrochlorothiazide 20 mg/12.5 mg Tablet PO SCH (08:28)
[2020-04-29] MEDS: Polyethylene Glycol 3350 17 GM Packet PO SCH (08:29)
[2020-04-29] MEDS: Senokot S 8.6-50 MG TAB PO SCH (08:29)
[2020-04-29] MEDS: ALPRAZolam 0.5 MG TAB PO PRN (10:04)
[2020-04-29 11:54] VITALS: BP 150/81; TEMP 97.8
--- NOTE | 2020-04-30 15:05 | DIS ---
DATE OF ADMISSION: 04/26/2020 DATE OF DISCHARGE: 04/29/2020 ADMISSION DIAGNOSIS: Mechanical fall from standing and right patellar fracture with joint effusion. DISCHARGE DIAGNOSIS: Mechanical fall from standing and right patellar fracture with joint effusion. CONSULTING PHYSICIAN: Dr. Navarrete of Orthopedic Surgery. PROCEDURES: The patient went to the OR on April 27, 2020, and had ORIF of the right patellar fracture. HOSPITAL COURSE: The patient is a 74 year old female, who presented to the emergency department after a mechanical fall. She was found to have a right patellar fracture with joint effusion. She was admitted to the hospital and went to the OR the next day with Dr. Navarrete and had an ORIF of the right patellar fracture. Postoperatively, she worked with Physical and Occupational Therapy. Initially, it was recommended for the patient to be placed on an acute rehab facility, she denied. Physical Therapy worked with her additionally in the next day. The patient denied placement again. However, she was agreeable to having home physical therapy. Reports that her family is very involved and can help with her care. At the time of discharge, the patient's pain was well controlled. She was tolerating regular diet, working with Physical and Occupational Therapy and voiding without difficulties. DISCHARGE DISPOSITION: Home. DISCHARGE CONDITION: Satisfactory. PHYSICAL EXAMINATION: VITAL SIGNS: Temperature 98.2, pulse 59, respirations 12, oxygen saturation 93% on room air, and blood pressure 159/82. GENERAL: Well-appearing elderly female, sitting up in chair with no signs of acute distress. PULMONARY: Equal chest rise and fall. Clear breath sounds bilaterally. No signs of acute respiratory distress. CARDIAC: Regular rate and rhythm. GASTROINTESTINAL: Soft, nontender, and nondistended. EXTREMITIES: 2+ pulses in all extremities. Gross motor and sensation intact. Postop dressing and knee immobilizer to right lower extremity are clean, dry, and intact. NEUROLOGIC: GCS is 15. DISCHARGE INSTRUCTIONS: The patient was discharged home. Activity as tolerated. Brace at all times except to shower. Weightbearing as tolerated. Right leg with brace on and locked in extension. Regular diet. She will have home physical therapy. She is also given instructions for care of her wound. She will have incentive spirometer, walker, and wheelchair. FOLLOWUP APPOINTMENTS: The patient is to follow up with Dr. Navarrete in clinic. No followup is needed with Dr. Andrews in Trauma Clinic. This is a summary of the patient's hospitalization. For full details, please see her medical record in its entirety. The patient did not receive additional opiate pain medications as she has a prescription for Ovalo that she takes at home. Medication was last filled on April 19 with enough tablets to last for 30 days. The medication is stronger than the tramadol she was taking here. Subsequently, she was not given additional pain medications. This information was obtained from the [employer]cription Monitoring Program. Job ID: [id number] [facility]ERS[facility]
== END 2020-04-29 14:42 | disposition home health service (06) | DRG 517 ==
LOC: ERS 16:48 → OBSVTOIN 18:02 → ERHOLD 18:02 → SURG A 04-27 03:42
PROVIDERS: ADMIT Specialist; ATTEND Specialist
PROC: 0QSD04Z Reposition Right Patella with Internal Fixation Device, Open Approach (ICD-10-PCS; principal; 2020-04-27)
DX: S82.031A Displaced transverse fracture of right patella, initial encounter for closed fracture (principal); Z96.652 Presence of left artificial knee joint; F41.9 Anxiety disorder, unspecified; G89.29 Other chronic pain; M54.9 Dorsalgia, unspecified; Z88.6 Allergy status to analgesic agent; Z79.899 Other long term (current) drug therapy; Z90.710 Acquired absence of both cervix and uterus; Z79.01 Long term (current) use of anticoagulants; Z90.49 Acquired absence of other specified parts of digestive tract; I10 Essential (primary) hypertension; G47.00 Insomnia, unspecified; E78.5 Hyperlipidemia, unspecified; E87.6 Hypokalemia; R33.9 Retention of urine, unspecified; M25.461 Effusion, right knee; Z20.828 Contact with and (suspected) exposure to other viral communicable diseases; W18.30XA Fall on same level, unspecified, initial encounter
CPT/HCPCS: 36415; 71045; 76000; 80048; 80053; 81001; 83735; 84100; 84484; 85025; 87086; 87635; 93005; J0690; J1100; J1885; J2250; J2370; J2405; J2704; J2765; J3010; J3480; J7050; U0003

== ENCOUNTER 2020-05-24 12:58 | Emergency (ER) | payer MEDICARE ==
[2020-05-24] MEDS ORDERED: Ondansetron PF 4 MG/2 ML Vial ONE (13:30)
[2020-05-24] MEDS ORDERED: Loperamide HCl 2 MG CAP ONE ×2 (13:30→17:07)
[2020-05-24 13:49] LABS: #Lymphocytes 0.4 thou/uL (1.20-3.40); #Monocytes 0.3 thou/uL (0.11-0.59); #Neutrophils 4.7 thou/uL (1.40-6.50); %Basophils 0.1 % (0.0-1.0); %Eosinophils 0.1 % (0.0-10.0); %Lymphocytes 8.1 % (21.0-51.0); %Monocytes 4.7 % (0.0-10.0); Hemoglobin 12.2 g/dL (12.0-16.0); Mean Corpuscular HGB CONC 33.5 g/dL (32.0-36.0); Mean Corpuscular Hemoglobin 28.7 pg (27.0-31.0); Mean Corpuscular Volume 85.6 fL (78.0-98.0); Mean Platelet Volume 7.7 fL (7.4-10.4); Platelet Count 155 thou/uL (130-400); RBC Distribution Width 12.3 % (11.5-14.5); Red Blood Cell (RBC) Count 4.27 mill/uL (4.20-5.40); White Blood Cell (WBC) Count 5.3 thou/uL (4.8-10.8)
--- NOTE | 2020-05-24 14:08 | RAD ---
Chest one view HISTORY: Chest pain. COMPARISON: 04/26/2020. FINDINGS: Cardiac silhouette is magnified by projection. Pulmonary vasculature are unremarkable. Mediastinum is midline with aortic calcification. Lung markings extend beyond the linear artifact at the right apex that mimics a pneumothorax. Lungs remain somewhat hyperinflated. Linear scarring at the left base. No lobar consolidation or evidence of pneumothorax. IMPRESSION : No acute abnormalities are demonstrated.
[2020-05-24 14:11] LABS: ALT (SGPT) 8 U/L (8-55); AST (SGOT) 16 U/L (5-34); Albumin 3.5 g/dL (3.4-4.8); Alkaline Phosphatase 51 U/L (40-110); Anion Gap 17 mmol/L (10-20); BUN (Urea Nitrogen) 19 mg/dL (9.8-20.1); Bilirubin, Total 0.6 mg/dL (0.2-1.2); CK (CPK) 19 U/L (29-168); Calc. Creatinine Clearance 0 mL/min (70-130); Calcium 8.3 mg/dL (7.8-10.44); Carbon Dioxide 28 mmol/L (23-31); Chloride 96 mmol/L (98-107); Globulin 2.3 g/dL (2.4-3.5); Glucose 152 mg/dL (83-110); Lipase 21 U/L (8-78); Potassium 3.8 mmol/L (3.5-5.1); Protein, Total 5.8 g/dL (6.0-8.3); Sodium 137 mmol/L (136-145)
[2020-05-24 15:26] LABS: Bilirubin Negative (Negative); Blood, Urine Negative (Negative); Clarity Clear (Clear); Glucose, Urine (Dipstick) Normal (Negative); Ketone, Urine Negative (Negative); Leukocyte Negative Leu/uL (Negative); Nitrite Negative (Negative); Protein, Urine (Dipstick) Negative (Neg-Trace); Specific Gravity, Urine 1.004 (1.002-1.036); Urobilinogen Normal mg/dL (Less than 2); pH, Urine 6.5 (5.0-9.0)
[2020-05-24 16:20] LABS: SARS-CoV-2 NAA Rapid Test DETECTED (NotDetected)
== END 2020-05-24 17:23 | disposition home or self-care (01) ==
LOC: ERS 12:58
DX: U07.1 COVID-19 (principal); J12.82 Pneumonia due to coronavirus disease 2019; I10 Essential (primary) hypertension; E78.00 Pure hypercholesterolemia, unspecified; Z79.899 Other long term (current) drug therapy
CPT/HCPCS: 0240U; 71045; 80053; 81003; 82550; 83690; 84484; 85025; 93005; 36415; 51701; 96374; J2405

== ENCOUNTER 2020-10-10 11:44 | Outpatient (CLI) | payer MEDICARE | END 2020-10-10 11:45 | disposition home or self-care (01) | LOC: BICRAD 11:44 | PROVIDERS: ATTEND Nurse Practitioner Family | DX: M54.2 Cervicalgia (principal); M47.812 Spondylosis without myelopathy or radiculopathy, cervical region | CPT/HCPCS: 72050 ==

== ENCOUNTER 2021-06-13 11:34 | Outpatient (CLI) | payer MEDICARE | END 2021-06-13 11:35 | disposition home or self-care (01) | LOC: BICRAD 11:34 | PROVIDERS: ATTEND Nurse Practitioner Family | DX: M47.812 Spondylosis without myelopathy or radiculopathy, cervical region (principal); M47.814 Spondylosis without myelopathy or radiculopathy, thoracic region; M43.12 Spondylolisthesis, cervical region | CPT/HCPCS: 72050; 72072 ==

== ENCOUNTER 2021-09-07 09:38 | Outpatient (CLI) | payer MEDICARE | END 2021-09-07 09:39 | disposition home or self-care (01) | LOC: MRI 09:38 | PROVIDERS: ATTEND Specialist | DX: M51.16 Intervertebral disc disorders with radiculopathy, lumbar region (principal); M47.816 Spondylosis without myelopathy or radiculopathy, lumbar region; M48.061 Spinal stenosis, lumbar region without neurogenic claudication | CPT/HCPCS: 72148 ==

== ENCOUNTER 2022-07-16 10:38 | Outpatient (CLI) | payer MEDICARE | END 2022-07-16 10:39 | disposition home or self-care (01) | LOC: RAD 10:38 | PROVIDERS: ATTEND Family Medicine | DX: R13.10 Dysphagia, unspecified (principal); K44.9 Diaphragmatic hernia without obstruction or gangrene; K22.89 Other specified disease of esophagus | CPT/HCPCS: 74220 ==

== ENCOUNTER 2022-08-26 12:43 | Outpatient (CLI) | payer MEDICARE | END 2022-08-26 12:44 | disposition home or self-care (01) | LOC: BICMAMMO 12:43 | PROVIDERS: ATTEND Family Medicine | DX: Z12.31 Encounter for screening mammogram for malignant neoplasm of breast (principal); M85.88 Other specified disorders of bone density and structure, other site; M81.0 Age-related osteoporosis without current pathological fracture | CPT/HCPCS: 77063; 77067; 77080 ==

== ENCOUNTER 2023-01-23 08:56 | Outpatient (CLI) | payer MEDICARE | END 2023-01-23 08:57 | disposition home or self-care (01) | LOC: MRI 08:56 | PROVIDERS: ATTEND Nurse Practitioner Family | DX: M47.22 Other spondylosis with radiculopathy, cervical region (principal); M50.11 Cervical disc disorder with radiculopathy, high cervical region; M50.122 Cervical disc disorder at C5-C6 level with radiculopathy; M50.123 Cervical disc disorder at C6-C7 level with radiculopathy; M50.121 Cervical disc disorder at C4-C5 level with radiculopathy | CPT/HCPCS: 72141 ==